=== PATIENT | female | born 1975 | race American Indian/Alaskan Native ===

== ENCOUNTER 2023-07-05 19:40 | Emergency (ER) | payer SELFPAY ==
[2023-07-05] MEDS ORDERED: Ibuprofen 800 MG Tab PO ONE (21:04)
[2023-07-05] MEDS ORDERED: Acetaminophen 325 MG Tab PO ONE (21:05)
[2023-07-05] MEDS: oxyCODONE 5 MG Tab PO ONE ×2 (22:11→22:21)
[2023-07-05] MEDS ORDERED: Acetaminophen/HYDROcodone 325-5 MG Tab PO ONE (22:16)
== END 2023-07-05 22:57 | disposition home or self-care (01) ==
LOC: DL.ED 19:40
DX: S82.832A Other fracture of upper and lower end of left fibula, initial encounter for closed fracture (principal); S82.302A Unspecified fracture of lower end of left tibia, initial encounter for closed fracture; Z86.16 Personal history of COVID-19; W01.0XXA Fall on same level from slipping, tripping and stumbling without subsequent striking against object, initial encounter
CPT/HCPCS: 73562-LT; 73610-LT; 99282; 99283; A9270-GY